=== PATIENT | male | born 1945 | race Native Hawaiian/Other Pacific Islander ===

== ENCOUNTER 2020-05-16 13:45 | Outpatient (CLI) | payer OTHER | END 2020-05-16 23:57 | disposition home or self-care (01) | LOC: LAB 13:45 | DX: Z20.828 Contact with and (suspected) exposure to other viral communicable diseases (principal); R53.83 Other fatigue; R52 Pain, unspecified | CPT/HCPCS: 87635; U0003 ==

== ENCOUNTER 2020-08-29 09:03 | Outpatient (CLI) | payer OTHER | END 2020-08-29 21:54 | disposition home or self-care (01) | LOC: MRI 09:03 | PROVIDERS: ATTEND Orthopaedic Surgery | DX: M25.552 Pain in left hip (principal); M16.12 Unilateral primary osteoarthritis, left hip; S76.112A Strain of left quadriceps muscle, fascia and tendon, initial encounter ==

== ENCOUNTER 2020-09-28 08:14 | Outpatient (CLI) | payer OTHER | END 2020-09-28 21:11 | disposition home or self-care (01) | LOC: MRI 08:14 | PROVIDERS: ATTEND Neurological Surgery | DX: M47.27 Other spondylosis with radiculopathy, lumbosacral region (principal); Z23 Encounter for immunization | CPT/HCPCS: 96372 ==

== ENCOUNTER 2020-09-28 09:14 | Outpatient (CLI) | payer OTHER | END 2020-09-28 21:14 | disposition home or self-care (01) | LOC: INF 09:14 | PROVIDERS: ATTEND Internal Medicine Endocrinology, Diabetes & Metabolism | DX: Z23 Encounter for immunization (principal) | CPT/HCPCS: 96372 ==

== ENCOUNTER 2020-10-26 12:39 | Outpatient (CLI) | payer OTHER | END 2020-10-26 19:58 | disposition home or self-care (01) | LOC: INF 12:39 | PROVIDERS: ATTEND Internal Medicine Endocrinology, Diabetes & Metabolism | DX: Z23 Encounter for immunization (principal) | CPT/HCPCS: 96372 ==

== ENCOUNTER 2020-12-07 09:25 | Outpatient (CLI) | payer OTHER ==
[2020-12-07 09:49] LABS: POTASSIUM 4.9 mmol/L (3.6-5.2)
[2020-12-07 10:23] LABS: PLATELET COUNT 186 K/uL (142-355)
== END 2020-12-07 19:32 | disposition home or self-care (01) ==
LOC: LAB 09:25
PROVIDERS: ATTEND Internal Medicine Endocrinology, Diabetes & Metabolism
DX: E88.81 Metabolic syndrome and other insulin resistance (principal); I10 Essential (primary) hypertension; E78.2 Mixed hyperlipidemia; E55.9 Vitamin D deficiency, unspecified; E53.8 Deficiency of other specified B group vitamins; Z79.899 Other long term (current) drug therapy
CPT/HCPCS: 80053; 80061; 82306; 82607; 83036; 85027

== ENCOUNTER 2020-12-10 08:21 | Inpatient (IN) | payer OTHER ==
[2020-12-10] VITALS (7 sets, daily range): BP systolic 112–166; BP diastolic 45–76; TEMP 97.6–98.2; Ht 172.7 cm; Wt 77.8 kg
[~2020-12-10] VITALS: Ht 172.7 cm; Wt 77.8 kg
[2020-12-10 08:52] LABS: PLATELET COUNT 194 K/uL (142-355)
[2020-12-10 09:03] LABS: POTASSIUM 3.9 mmol/L (3.6-5.2)
[2020-12-10 09:06] LABS: PARTIAL THROMBOPLASTIN TIME 24.7 SECONDS (24.5-33.6)
--- NOTE | 2020-12-10 11:45 | NUR ---
PATIENT BROUGHT VIA STRETCHER TO ROOM 1129. ASSESSMENT COMPLETED. MENDS EXAM COMPLETED. FAMILY PRESENT AT THIS TIME. PATIENT HAS COBAN TO THE RIGHT FOREARM A SKIN TEAR FROM FALL THIS MORNING. KOBAN AND DRESSING INTACT. SUCTION TO THE BEDSIDE FOR ASPIRATION PRECAUTIONS. BED ALARM ON PATIENT IS RISK FOR FALL. BED LOCKED IN LOW POSITION, CALL PENA WITHIN REACH.
[2020-12-10] MEDS ORDERED: VITAMIN D5000 UNIT PO (13:57)
[2020-12-10] MEDS ORDERED: CLOP75TA2 PO (13:59)
[2020-12-10] MEDS ORDERED: MIRAPEX0.125 MG PO (14:00)
[2020-12-10] MEDS ORDERED: SIMV40TA57 PO (14:06)
[2020-12-10] MEDS ORDERED: OMEPRAZOLE20 MG PO (14:11)
[2020-12-10] MEDS ORDERED: MEDI-SELTZER PO (14:22)
[2020-12-10] MEDS ORDERED: B121000 MCG PO (14:24)
--- NOTE | 2020-12-10 16:00 | NUR ---
MENDS SCORE 0. NO ACUTE DISTRESS NOTED.
--- NOTE | 2020-12-11 01:16 | NUR ---
0115: PT RESTING QUIETLY. NO DISTRESS NOTED.
[2020-12-11 04:36] VITALS: BP 142/67; TEMP 98.2
[2020-12-11 05:45] LABS: PLATELET COUNT 167 K/uL (142-355)
[2020-12-11 05:55] LABS: POTASSIUM 4.5 mmol/L (3.6-5.2)
--- NOTE | 2020-12-11 09:57 | NUR ---
[facility] CALLED STATING PT CREATININE TO ELEVATED TO GIVE CONTRAST, CONTACTED DR. WATSON HE ORDERS TO CHANGE ORDER TO MRI CONTRAST WITHOUT AT THIS TIME, ORDER WRITTEN AND FAXED TO [facility] AT THIS TIME
[2020-12-11 16:00] VITALS: BP 162/65; TEMP 97.9
[2020-12-11 20:00] VITALS: BP 137/62; TEMP 98.3
--- NOTE | 2020-12-11 20:54 | NUR ---
12/11/20 AT 0 PATIENT RESTING QUIETLY, DENIES ANY COMPLAINTS AT THIS TIME. CALL LIGHT WITHIN REACH. WILL CONTINUE TO MONITOR.
[2020-12-12] VITALS: BP 136/68; TEMP 97.4
[2020-12-12 04:00] VITALS: BP 145/65; TEMP 97.9
[2020-12-12 05:43] LABS: PLATELET COUNT 160 K/uL (142-355)
[2020-12-12 06:12] LABS: POTASSIUM 4.4 mmol/L (3.6-5.2)
[2020-12-12 07:56] VITALS: BP 147/59; TEMP 97.7
--- NOTE | 2020-12-12 10:00 | NUR ---
THERAPY AT AT THIS TIME.
--- NOTE | 2020-12-12 11:30 | NUR ---
THERAPY AT BS
--- NOTE | 2020-12-12 11:45 | NUR ---
PT SET UP FOR BED BATH. LINENS CHANGED AT THIS TIME. PT TOLERATED WELL NO PROBELMS NOTED.
[2020-12-12 12:00] VITALS: BP 134/72; TEMP 98.1
--- NOTE | 2020-12-12 15:28 | NUR ---
NEW ORDERS REC'D FROM DR WATSON TO DC TEL AND CONT PULSE OX
[2020-12-12 16:29] VITALS: BP 100/70; TEMP 97.8
[2020-12-12 20:00] VITALS: BP 150/68; TEMP 97.9
[2020-12-13] VITALS: BP 122/60; TEMP 97.8
--- NOTE | 2020-12-13 02:29 | NUR ---
12/12/2020 AT 2134 IV SITE DRESSING DRY AND INTACT, FLUSHED WITH 10 MLS OF NORMAL SALINE WITHOUT ANY DIFFICULTY AND PATIENT DENIES ANY PAIN OR TENDERNESS, NO REDNESS OR EDEMA NOTED TO SITE. PATIENT STATES "FEELS FINE". LEVAQUIN 500MG IV STARTED, PATIENT INSTRUCTED TO CALL IF ANY PAIN, SWELLING OR IV PUMPS BEEPS. PATIENT VERBALIZES UNDERSTANDING.
--- NOTE | 2020-12-13 02:32 | NUR ---
12/12/2020 AT 2320 IN PATIENTS ROOM TO CHECK ON IV SITE. PATIENTS IV FOUND TO BE INFILTRATED. EDEMA AND REDNESS NOTED TO SITE. IV SITE D/C'D CATHETER INTACT AND PATIENT TOLERATED WELL. BLEEDING CONTROLLED WITH PRESSURE AND COLD COMPRESS APPLIED. WILL ATTEMPT TO RESITE IV SITE. CALL LIGHT WITHIN REACH. WILL CONTINUE TO MONITOR.
[2020-12-13 04:00] VITALS: BP 150/67; TEMP 97.6
[2020-12-13 05:31] LABS: PLATELET COUNT 182 K/uL (142-355)
[2020-12-13 05:38] LABS: POTASSIUM 4.7 mmol/L (3.6-5.2)
--- NOTE | 2020-12-13 08:20 | NUR ---
SHIFT ASSESSMENT COMPLETED THIS MORNING AND MEDICATIONS GIVEN ORDERED. PATIENT ALSO GIVEN BREAKFAST TRAY AND HE WAS ABLE TO SIT UP AT THE BEDSIDE AND EAT BREAKFAST W/O ASSISTANCE. PATIENT TOOK MEDICATIONS WITHOUT ASSISTANCE WELL. DAUGHTER LANDY HERE AT THE BEDSIDE AND BROUGHT PATIENT CLOTHES AND OTHER BELONGINGS. NO ACUTE DISTRESS NOTED.
[2020-12-13] MEDS ORDERED: APIX1TAB PO (09:39)
[2020-12-13] MEDS ORDERED: CLOTRIMAZOLE EX (09:50)
== END 2020-12-13 11:10 | disposition swing bed (61) | DRG 65 ==
LOC: ED 08:21 → MED/SURG 11:08
PROVIDERS: Hospitalist; ADMIT Internal Medicine; ATTEND Internal Medicine Endocrinology, Diabetes & Metabolism
DX: I63.233 Cerebral infarction due to unspecified occlusion or stenosis of bilateral carotid arteries (principal); D68.52 Prothrombin gene mutation; N18.4 Chronic kidney disease, stage 4 (severe); E78.49 Other hyperlipidemia; I25.10 Atherosclerotic heart disease of native coronary artery without angina pectoris; K21.9 Gastro-esophageal reflux disease without esophagitis; E55.9 Vitamin D deficiency, unspecified; I12.9 Hypertensive chronic kidney disease with stage 1 through stage 4 chronic kidney disease, or unspecified chronic kidney disease
CPT/HCPCS: 36415; 80048; 80053; 80320; 81000; 82550; 83880; 84484; 85027; 85610; 85730; 87635; 93005; 96360; 99284; J0696; J0697; J1650; J1956; J2405; U0003

== ENCOUNTER 2020-12-13 11:10 | Inpatient (IN) | payer OTHER ==
[~2020-12-13] VITALS: Ht 172.7 cm; Wt 76.2 kg
[~2020-12-13 11:10] MED LIST: APIX1TAB PO; B121000 MCG PO; CLOP75TA2 PO; CLOTRIMAZOLE EX; MEDI-SELTZER PO; MIRAPEX0.125 MG PO; OMEPRAZOLE20 MG PO; SIMV40TA57 PO; VITAMIN D5000 UNIT PO
--- NOTE | 2020-12-13 14:42 | NUR ---
PATIENT IS OUT OF HIS ROOM WITH PT. PATIENT WAS ABLE TO AMBULATE WITH GAIT BELT IN PLACE. PATIENT TOLERATED WELL.
--- NOTE | 2020-12-13 15:00 | NUR ---
PATIENT HAD FAMILY VISITING AT THIS TIME.
[2020-12-13 16:09] VITALS: BP 150/64; TEMP 98.9; Ht 172.7 cm; Wt 76.2 kg
--- NOTE | 2020-12-13 18:46 | NUR ---
PATIENT HAS DONE WELL THROUGH OUT THE DAY TODAY. PATIENT IS IN GOOD SPIRITS AND IS RECEPTIVE TO CARE AND PARTICIPATING IN ALL ACTIVITIES. PATIENT DID AMBULATE DOWN THE BRAND WITH PT AND THEY DID USE A GAIT BELT FOR FALL PRECAUTION. PATIENT WAS IN NO ACUTE DISTRESS AT THIS TIME. PATIENT ALSO PRIOR TO TRANSITIONING TO SWING BED THIS MORNING WAS ABLE TO TAKE A SHOWER ON HIS OWN WITH SOME ASSISTANCE SETUP. NO OTHER ACUTE DISTRESS WAS NOTED AT THAT TIME.
[2020-12-13 20:13] VITALS: BP 115/55; TEMP 99.5
--- NOTE | 2020-12-13 23:17 | NUR ---
2000: PT AWAKE, ALERT. PT DENIES ANY PAIN AT THIS TIME. PT PULLED HIMSELF UP IN BED WITH NO ASSIST.
--- NOTE | 2020-12-14 05:00 | NUR ---
PT RESTED WELL THIS SHIFT. NO VERBAL COMPLAINTS. PT HAS NEEDED NO ASSIST THIS SHIFT.
--- NOTE | 2020-12-14 05:19 | NUR ---
Patient was admitted and has a history of TIA, cerebral infarction, CVA, MRI, HTN, Hyperlipidemia, Vitamin D, GERD, Prothrombin gene mutation, Bilateral CAD, carotid stenosis with cerebral infarction< 8 weeks ago, reviewed all medicaitons and MD's notes, labs reveal Cl, BUN, Creat, Troponin and HGBA1C all elcated and those depressed are Alt, 25-hydroxy Vitamin D3, is on a 2 gm Na diet plan and is 5'8" and IBW = 154+/-10% (139 to 169 lbs.) and kcal needs for IBW x 25 to 40 = 1700 to 2800 kcal/day, protein needs x .8 to 1.5 = 56 to 105 grams per dya and fluids x 25 to 40 = 1700 to 2800 ml/cc per day and BMI is 26.149 and is overweight and weight is at 171.7 lbs. and is 112% of IBW. RD recommenatons: 1-Monitor Labs 2-PT to work with the patient 3-OT to work with the patient 4-Suggest a Cardiac High Fiber diet and may want to add NCS only if patient will follow and if won't follow diet get a dietary refusal form signed 5-Add a MVI if eating <75% of meals 6-Make sure hydrated and may want a fluid restriction.
[2020-12-14 08:00] VITALS: BP 156/74; TEMP 97.8
--- NOTE | 2020-12-14 11:28 | NUR ---
PATIENT VISITING WITH MALE GENTLEMAN AT BEDSIDE AT THIS TIME. PATIENT IS SMILING AND CONVERSING WITHOUT DIFFICULTY.
--- NOTE | 2020-12-14 15:16 | NUR ---
PATIENT'S GRANDSON AT BEDSIDE VISITING WITH PATIENT. PT CONVERSING WITH GRANDSON. NAD NOTED WITH PATIENT AT THIS TIME.
--- NOTE | 2020-12-14 18:08 | NUR ---
PATIENT IN HIGH FOWLERS POSITION EATING HIS SUPPER TRAY.
--- NOTE | 2020-12-14 18:15 | NUR ---
DR. VEGA SPEAKING WITH PATIENT'S DAUGHTER, MADI AND ANSWERING QUESTIONS DAUGHTER HAVE AT THIS TIME.
--- NOTE | 2020-12-14 19:00 | NUR ---
ROUNDS MADE. PT WITH NO COMPLAINTS. BEDSIDE TABLE IN EASY REACH. CALL LIGHT IN REACH. INSTRUCTED PT TO CALL FOR ASSISTANCE. PT VOICED UNDERSTANDING.
[2020-12-14 20:00] VITALS: BP 181/71; TEMP 98.2
[2020-12-14 20:19] VITALS: BP 181/71; TEMP 98.2
--- NOTE | 2020-12-14 21:00 | NUR ---
PM MEDICATIONS GIVEN. NO COMPLAINTS VOICED.
--- NOTE | 2020-12-14 23:00 | NUR ---
PT WAS SUPERVISED HE WALKED TO BR. PT AMBULATED WITH NO DIFFICULTY. WAS SUPERVISED HE WENT BACK TO LAY IN BED. 2 PERSONS PULLED PT UP IN BED USING DRAW SHEETS. PT FOLLOWS DIRECTIONS WELL.
--- NOTE | 2020-12-15 02:35 | NUR ---
PT IS RESTING WITH EYES CLOSED.
[2020-12-15 08:00] VITALS: BP 138/66; TEMP 97.9
--- NOTE | 2020-12-15 09:00 | NUR ---
PT IN ROOM WITH PT. PT'S DAUGHTER LANDY IRBY IS IN ROOM SPEAKING WITH RHYS FROM PT AND ANSWERING QUESTIONS.
--- NOTE | 2020-12-15 09:10 | NUR ---
PT IN ROOM AMBULATING IN ROOMA AND DOING EXERCISES AT THIS TIME PER THERAPY. PT SHAVED AND BATH WHILE PT IN ROOM SUPERVISING PT. PT BED LINES CHANGED AT THIS TIME PER NURSING STAFF. PT ASSISTED WITH DRESSING ALONG WITH MINIUM ASSISTANCE FROM THERAPY.
--- NOTE | 2020-12-15 09:30 | NUR ---
PT IN HALLWAY AMBULATING WITH THERAPY X 1 ASSIST. PT USING ROLLING WALKER AND GAIT BELT INTACT. PT TOELRATING AMBULATION WELL. WILL CONT TO MONITOR.
--- NOTE | 2020-12-15 09:41 | NUR ---
ASSISTED PT BACK TO BED AFTER THERAPY. REMOVED SHOES. EAR DROPS PLACED IN BILAT EARS PER MD ORDERS. NO DISTRESS NTOED.
--- NOTE | 2020-12-15 14:01 | NUR ---
PT UP AMBULATING IN HALLWAY WITH WALKER WITH PT. GAIT BELT INTACT. PT TOLERATING AMBULATION WELL.
[2020-12-15 20:09] VITALS: BP 154/64; TEMP 98.1
--- NOTE | 2020-12-15 23:07 | NUR ---
12/15/20 AT 1930 PATIENT RESTING QUIETLY WATCHING TV, DENIES ANY COMPLAINTS OR REQUESTS AT THIS TIME. PATIENT STATES "IM DOING GOOD." CALL LIGHT WITHIN REACH. WILL CONTINUE TO MONITOR.
--- NOTE | 2020-12-15 23:09 | NUR ---
12/15/20 AT 2300 PATIENT RESTING QUIETLY WITH EYES CLOSED. NO ACUTE DISTRESS NOTED AT THIS TIME. CALL LIGHT WITHIN REACH. WILL CONTINUE TO MONITOR.
[2020-12-16 08:00] VITALS: BP 133/61; TEMP 97.8
--- NOTE | 2020-12-16 08:38 | NUR ---
Swing Bed Meeting and talk with [facility] BED COORDINATOR NAILA and patient strted the SWING BeD program on the and rebound is good and patient is ambulating, father had CVA over the weekend and he continues to be on a 2 gm Na diet plan, and his and he doesn't cook so much and just eats food that is convenient for him and he stated he eats a lot he should not eat and is at 180 lbs. and stated he needs to decrease weight, has tremor in right hand and he is a lot better and said a weighed spoon makes it worse and since the stroke the tremors are not as noticable, B12 and D deficiency, meripex to help with the tremors. Family brings milkshakes which he really likes. Like to talk.
--- NOTE | 2020-12-16 14:45 | NUR ---
ASSISTED PATIENT WITH WALKING OUTSIDE, LIMITED ASSISTANCE ONLY USING THE GAIT BELT, WALKED WITH PT DOWN BRAND OUT OF FRONT ENTRANCE ONTO SIDEWALK AND BACK THROUGH ER FRONT ENTRANCE AND BACK TO PT'S RM, NAD NOTED, UNSTEADINESS NOTED TO RT SIDE BUT PT DID NOT TRIP OR STUMBLE DURING AMBULATION, ASSISTED PT WITH REMOVING SHOES ONCE BACK IN THE ROOM AND PT AMBULATED BACK TO BED WIHTOU ASSISTANCE, NO FURTHER NEEDS AT THIS TIME, PT STATES HE IS GOING TO REST NOW, WILL CONTINUE TO MONITOR, PLACED CALL LIGHT WITHIN REACH
[2020-12-16 20:00] VITALS: BP 142/67; TEMP 97.8
--- NOTE | 2020-12-16 20:00 | NUR ---
PATIENT LYING IN BED WATCHING TV. RESPIRATIONS EVEN AND UNLABORED. NAD NOTED. DENIES PAIN OR OTHER COMPLAINTS AT THIS TIME. ALERT AND ORIENTED. REQUESTING A SHOWER TONIGHT BEFORE LEAVING IN THE AM WITH FAMILY. STATES HIS SON WILL PICK HIM UP AT 0600 IN THE MORNING AND HE WILL RETURN IN THE AFTERNOON PER MD ORDERS. BED LOCKED AND IN LOWEST POSITION. CALL LIGHT WITHIN EASY REACH.
--- NOTE | 2020-12-16 20:30 | NUR ---
PATIENT UP AND IN THE SHOWER. PCT IN THE ROOM TO ASSIST IF NEEDED.
--- NOTE | 2020-12-16 23:05 | NUR ---
PATIENT RESTING QUIETLY IN BED WITH EYES CLOSED. RESPIRATIONS EVEN AND UNLABORED. NAD NOTED. CALL LIGHT WITHIN REACH.
--- NOTE | 2020-12-17 05:15 | NUR ---
IN PATIENT'S ROOM. PATIENT AWAKE. ASSISTED PATIENT GETTING DRESSED WHEN NEEDED. PATIENT SITTING UP IN CHAIR READY TO BE PICKED UP BY HIS SON. RESPIRATIONS EVEN AND UNLABORED. NAD NOTED.
--- NOTE | 2020-12-17 06:02 | NUR ---
PATIENT'S SON HERE TO HOMEOWNER [employer]OCIATION MANAGER PATIENT. PATIENT SIGNED LEAVE OF [facility] FORM. AMBULATED WITHOUT ASSISTANCE TO LEAVE FACILITY. SON ACCOMPANYING PATIENT. WILL RETURN THIS AFTERNOON. NAD NOTED.
--- NOTE | 2020-12-17 09:30 | NUR ---
PT AMBULATED TO RM 1129 WITH SON BY HIS SIDE RETURNING FROM A TRIP HOME THIS AM, NAD NOTED, SON ASSISTED PT WITH REMOVING SHOES, PT SITTING UP ON SIDE OF BED TO EAT BREAKFAST, NO FURTHER NEEDS AT THIS TIME, WILL CONTINUE TO MONITOR, CALL LIGHT WITHIN REACH
--- NOTE | 2020-12-17 15:34 | NUR ---
AMBULATED WITH PT IN HALLWAY. MINIUM ASSISTANCE NEEDED. PT TOELRATED WELL. NO PROBLEMS NOTED. ASSISTED PT BACK TO BED.
[2020-12-17 20:08] VITALS: BP 149/71; TEMP 97.6
[2020-12-18 08:00] VITALS: BP 140/69; TEMP 97.4
--- NOTE | 2020-12-18 10:45 | NUR ---
PATIENT WALKING IN HALLWAY WITH THERAPY, GAIT IS NOTED TO BE STEADY AND SLOW. BED LINENS CHANGED AT THIS TIME.
--- NOTE | 2020-12-18 12:30 | NUR ---
PATIENT VISITING WITH GRANDSON AT BEDSIDE. PT LAUGHING AND CONVERSING WITHOUT DIFFICULTY. NO S/SX OF DISTRESS NOTED AT THIS TIME. CALL LIGHT WITHIN REACH ALONG WITH PERSONAL BELONGINGS.
[2020-12-18 19:55] VITALS: BP 146/68; TEMP 98.3
--- NOTE | 2020-12-18 21:19 | NUR ---
PM MEDICATIONS WERE GIVEN. NO COMPLAINTS VOICED. PT WAS ABLE TO AMBULATE TO THE BATHROOM WITHOUT ASSISTANCE. PT WAS STEADY AND QUICK WITH MOVEMENT.
--- NOTE | 2020-12-19 01:10 | NUR ---
PT IS RESTING. NAD. PT SWING BED STATUS. PHYSICAL THERAPY WILL WORK WITH PATIENT IN THE AM. PT STATES THAT HE WILL BE HERE UNTIL FRIDAY.
--- NOTE | 2020-12-19 03:55 | NUR ---
PT CONTINUES TO REST QUIETLY.
--- NOTE | 2020-12-19 06:22 | NUR ---
PT HAS RESTED THIS SHIFT. BEDSIDE TABLE IN EASY REACH. PT WAS INSTRUCTED TO CALL FOR ANY ASSISTANCE. PT VOICED UNDERSTANDING.
[2020-12-19 07:39] VITALS: BP 120/60; TEMP 97.8
--- NOTE | 2020-12-19 09:05 | NUR ---
THERAPY AT PATIENT'S SIDE WALKING IN HALLWAY. GAIT IS STEADY. NAD NOTED WITH PATIENT AT THIS TIME. PATIENT DENIES ANY NEEDS OR C/O.
--- NOTE | 2020-12-19 15:36 | NUR ---
Resident watching "action movie" in his room. Presented resident with a Shashank Woodruff puzzle book and pen as he previously indicated he likes to watch westerns at times. Resident stated, "I like this. Thank you. How much do I owe you?" Explained that there was no charge for the book. Showed him that the answers to the puzzles are in the back of the book if he happens to get stumped. Resident smiled, took the book, opened it, said he was going to get to work on the puzzles.
[2020-12-19 20:00] VITALS: BP 129/61; TEMP 98.6
--- NOTE | 2020-12-20 05:21 | NUR ---
12/20/20 0230: RECEIVED PT FROM LAURYN MEJÍA RN PT SLEEPING WITHOUT DISTRESS NOTED.
--- NOTE | 2020-12-20 05:23 | NUR ---
12/20/20 0430: PT AWAKE LYING IN BED. PT VERY PLEASANT AND SMILING. DENIES ANY NEEDS AT THIS TIME.
[2020-12-20 08:00] VITALS: BP 130/70; TEMP 97.9
[2020-12-20 20:00] VITALS: BP 136/60; TEMP 97.8
[2020-12-21 08:00] VITALS: BP 137/58; TEMP 97.9
--- NOTE | 2020-12-21 09:00 | NUR ---
MORNING ASSESMENT COMPLETE, PT SITTING UP IN CHAIR THAT HE AMBULATED TO WITHOUT ASSISTANCE, NAD NOTED, PT IS WATCHING TV AT THIS TIME, NONLABORED BREATHING, PT VOICES NO NEEDS AT THIS TIME, CALL LIGHT IS WITHIN REACH, WILL CONTINUE TO MONITOR
--- NOTE | 2020-12-21 10:17 | NUR ---
HOME HEALTH REFERRAL WITH PT AND OT SERVICES HAS BEEN SENT TO [facility]. THE PATIENT MEDICATIONS HAVE BEEN CALLED IN TO [facility] IN [place] WHERE THE MEDICATIONS WILL BE PACKAGED. THE PATIENT'S DAUGHTER LANDY WILL PICK PATIENT UP TOMORROW AT THE TIME OF DISCHARGE. PATIENT DOES NOT REQUIRE ANY SPECIAL EQUIPMENT AT THIS TIME.
--- NOTE | 2020-12-21 10:51 | NUR ---
[facility] CALLED TO REPORT THEY DO NOT HAVE AN OT THERPIST IN [place] AT THIS TIME. REFERRAL SENT TO [facility] IN [place].
[2020-12-21 19:56] VITALS: BP 120/59; TEMP 98
[2020-12-22 08:00] VITALS: BP 144/72; TEMP 98.1
--- NOTE | 2020-12-22 09:06 | NUR ---
12/22/20 0820 PT AWAKE STANDING UP IN ROOM GETTING HIS THINGS TOGETHER LOOKING FOR SOCKS TO PUT ON.RESP EVEN NONLABORED.NAD NOTED.CC
--- NOTE | 2020-12-22 09:40 | NUR ---
ADMINISTERED AM MEDICATIONS AND PATIENT TOOK WHOLE WITHOUT DIFFICULTY. PATIENT DENIES ANY PAIN, NEEDS OR C/O AT THIS TIME. CALL LIGHT WITHIN REACH AND PATIENT INSTRUCTED TO CALL FOR ANY ASSISTANCE OR NEEDS, PT V/O UNDERSTANDING.
--- NOTE | 2020-12-22 10:12 | NUR ---
PATIENT SITTING UP IN CHAIR AT BEDSIDE AND DENIES ANY PAIN, NEEDS OR C/O AT THIS TIME. NAD NOTED WITH PATIENT. CALL LIGHT AND BED SIDE TABLE WITH PERSONAL BELONGINGS WITHIN REACH.
--- NOTE | 2020-12-22 11:05 | NUR ---
PATIENT AND DAUGHTER PROVIDED D/C INSTRUCTIONS ALONG WITH FOLLOW UP APPOINTMENT CARD WITH DR. CHELSEY HAQ ON JANUARY 11, 2021 @ 3:00PM. PATIENT TAKEN TO DAUGHTER'S POV. PATIENT TRANSFERRED TO POV WITHOUT DIFFICULTY. GAIT IS STEADY. PATIENT DENIES ANY PAIN, NEEDS OR C/O AT THIS TIME. NAD NOTED WITH PATIENT.
== END 2020-12-22 11:00 | disposition home or self-care (01) | DRG 947 ==
LOC: MED/SURG 11:10
PROVIDERS: ADMIT Internal Medicine; ATTEND Internal Medicine
DX: R53.1 Weakness (principal); I63.233 Cerebral infarction due to unspecified occlusion or stenosis of bilateral carotid arteries; D68.52 Prothrombin gene mutation; E78.49 Other hyperlipidemia; R73.03 Prediabetes; I12.9 Hypertensive chronic kidney disease with stage 1 through stage 4 chronic kidney disease, or unspecified chronic kidney disease; N18.32 Chronic kidney disease, stage 3b; K21.9 Gastro-esophageal reflux disease without esophagitis
CPT/HCPCS: 87081

== ENCOUNTER 2021-12-31 11:15 | Outpatient (CLI) | payer OTHER ==
[2021-12-31 11:39] LABS: PLATELET COUNT 212 K/uL (142-355)
[2021-12-31 11:58] LABS: POTASSIUM 4.8 mmol/L (3.6-5.2)
== END 2021-12-31 19:54 | disposition home or self-care (01) ==
LOC: US 11:15
PROVIDERS: ATTEND Internal Medicine Nephrology
DX: R31.9 Hematuria, unspecified (principal); E55.9 Vitamin D deficiency, unspecified; M53.9 Dorsopathy, unspecified; I25.10 Atherosclerotic heart disease of native coronary artery without angina pectoris; N18.4 Chronic kidney disease, stage 4 (severe); Z79.01 Long term (current) use of anticoagulants; I12.9 Hypertensive chronic kidney disease with stage 1 through stage 4 chronic kidney disease, or unspecified chronic kidney disease
CPT/HCPCS: 36415; 80069; 81000; 82570; 84156; 85027

== ENCOUNTER 2022-02-18 13:32 | Inpatient (IN) | payer OTHER ==
[~2022-02-18] VITALS: Ht 172.7 cm; Wt 85.4 kg
[~2022-02-18 13:32] MED LIST changes: +AMLODIPINE BESYLATE PO; +CEPHALEXIN500 MG PO; +GLIM2TAB PO; -MIRAPEX0.125 MG PO; +PRAMIPEXOLE0.25 MG PO; +TAMSULOSIN0.4 MG PO; +VITAMIN D1000 UNIT PO; -VITAMIN D5000 UNIT PO; +XARELTO10 MG PO
[2022-02-18 13:59] VITALS: BP 132/68; TEMP 97.7
[2022-02-18 15:09] LABS: PLATELET COUNT 227 K/uL (142-355)
[2022-02-18 15:17] LABS: POTASSIUM 4.6 mmol/L (3.6-5.2)
[2022-02-18 18:09] VITALS: BP 138/65
[2022-02-18 18:30] VITALS: BP 138/63
[2022-02-18 19:44] VITALS: BP 136/64; TEMP 97.9
[2022-02-18 23:59] VITALS: BP 133/71; TEMP 97.7
[2022-02-19] VITALS (7 sets, daily range): BP systolic 121–136; BP diastolic 59–69; TEMP 97.5–98.8; Ht 172.7 cm; Wt 85.4 kg
[2022-02-19 05:16] LABS: PLATELET COUNT 216 K/uL (142-355)
[2022-02-19 05:26] LABS: POTASSIUM 4.7 mmol/L (3.6-5.2)
[2022-02-20 03:45] VITALS: BP 136/66; TEMP 97.7
[2022-02-20 05:38] LABS: PLATELET COUNT 251 K/uL (142-355)
[2022-02-20 06:07] LABS: POTASSIUM 4.5 mmol/L (3.6-5.2)
[2022-02-20 08:02] VITALS: BP 137/62; TEMP 98.2
[2022-02-20] MEDS ORDERED: MULTIVITAMIN PO (11:01)
[2022-02-20 12:16] VITALS: BP 135/65; TEMP 97.9
[2022-02-20 16:00] VITALS: BP 134/61; TEMP 97.7
[2022-02-20 20:00] VITALS: BP 122/62; TEMP 98.4
[2022-02-21] VITALS: BP 132/64; TEMP 98.5
[2022-02-21 04:00] VITALS: BP 120/55; TEMP 97.5
[2022-02-21] MEDS ORDERED: OXYC5TAB53 PO (08:16)
[2022-02-21] MEDS ORDERED: PANTOPRAZOLE 40MG TA PO (08:17)
[2022-02-21] MEDS ORDERED: DECADRON6 MG PO (08:18)
[2022-02-21 08:19] VITALS: BP 142/66; TEMP 97.7
== END 2022-02-21 11:07 | disposition short-term general hospital (02) | DRG 552 ==
LOC: ED 13:32 → MED/SURG 17:45
PROVIDERS: Emergency Medicine Emergency Medical Services; ADMIT Internal Medicine; ATTEND Internal Medicine
DX: M54.89 Other dorsalgia (principal); M48.061 Spinal stenosis, lumbar region without neurogenic claudication; Z98.890 Other specified postprocedural states; R26.81 Unsteadiness on feet; Z86.73 Personal history of transient ischemic attack (TIA), and cerebral infarction without residual deficits; D72.828 Other elevated white blood cell count; Z79.01 Long term (current) use of anticoagulants; I10 Essential (primary) hypertension; E11.9 Type 2 diabetes mellitus without complications; K21.9 Gastro-esophageal reflux disease without esophagitis; N40.0 Benign prostatic hyperplasia without lower urinary tract symptoms; N18.9 Chronic kidney disease, unspecified; G25.81 Restless legs syndrome; I65.29 Occlusion and stenosis of unspecified carotid artery; I25.2 Old myocardial infarction
CPT/HCPCS: 36415; 80048; 80053; 81000; 83735; 84484; 85027; 86140; 87040; 87635; 93005; 96360; 96361; 96374; 96375; 99284; J0696; J2270; J2405; J2920; U0003

== ENCOUNTER 2022-02-21 09:40 | Inpatient (IN) | payer OTHER ==
[~2022-02-21 09:40] MED LIST changes: +DECADRON6 MG PO; +MULTIVITAMIN PO; +OXYC5TAB53 PO; +PANTOPRAZOLE 40MG TA PO
[2022-02-25 12:55] LABS: PLATELET COUNT 234 K/uL (142-355)
[2022-03-05 05:36] LABS: PLATELET COUNT 196 K/uL (142-355)
[2022-03-07 12:11] LABS: PLATELET COUNT 174 K/uL (142-355)
== END 2022-03-13 10:46 | disposition home or self-care (01) ==
LOC: PAVB 09:40
PROVIDERS: ADMIT Internal Medicine Endocrinology, Diabetes & Metabolism; ATTEND Internal Medicine Endocrinology, Diabetes & Metabolism
DX: M54.51 Vertebrogenic low back pain (principal); Z47.89 Encounter for other orthopedic aftercare; M48.061 Spinal stenosis, lumbar region without neurogenic claudication; R62.7 Adult failure to thrive; M62.81 Muscle weakness (generalized); R26.81 Unsteadiness on feet; Z74.1 Need for assistance with personal care
CPT/HCPCS: 36415; 85027; 85652; 86140; 87081

== ENCOUNTER 2022-03-14 10:49 | Outpatient (CLI) | payer OTHER ==
[2022-03-14 11:00] LABS: PLATELET COUNT 105 K/uL (142-355)
[2022-03-14 11:11] LABS: POTASSIUM 5.8 mmol/L (3.6-5.2)
== END 2022-03-14 20:36 | disposition home or self-care (01) ==
LOC: LAB 10:49
PROVIDERS: ATTEND Nurse Practitioner Family
DX: D72.828 Other elevated white blood cell count (principal); N18.9 Chronic kidney disease, unspecified
CPT/HCPCS: 80053; 85007; 85027